=== PATIENT | male | born 1960 | race American Indian/Alaskan Native ===

== ENCOUNTER 2020-02-21 21:21 | Emergency (ER) | payer MEDICAID ==
[~2020-02-21 21:21] MED LIST: CALCIUM CHLORIDE 1,000 MG/10 ML SYRINGE IV ONE; EPINEPHrine 1:10,000 1 MG/10 ML SYRINGE ONE; SODIUM BICARB 8.4% 50 MEQ/50 ML SYRINGE IV ONE
--- NOTE | 2020-02-21 21:43 | Emergency Department Report ---
HPI - General Chief Complaint: Cardiac Arrest/CPR Time Seen by Provider: 02/21/20 21:39 - HPI HPI: 59-year-old -[place] male presents to the emergency department via EMS from home in cardiac arrest. Apparently the patient's last known well time was about 45 minutes prior to EMS arrival. EMS found the patient unresponsive and pulseless in the bathroom surrounded by vomit. Apparently the patient went in between PEA, asystole, and did have 1 episode of V. tach. He received a defibrillation for the V. tach and went back into asystole. The patient received 4 rounds of epinephrine and 300 mg of amiodarone with EMS. The patient was intubated and was receiving bag valve ventilation and he had a intraosseous line placed. EMS confirms that the patient has some type of past medical history but they were unable to say what conditions or comorbidities this patient has. He has never been to this facility previously. ED Review of Systems ROS: Stated complaint: CARDIAC ARREST Other details as noted in HPI Comment: Unobtainable due to pts medical conditions Physical Exam - Physical Exam Physical Exam: GENERAL: Patient is ill-appearing and unresponsive. HENT: Normocephalic. Atraumatic. EYES: Pupils are fixed and dilated. NECK: Supple. Trachea appears midline. CHEST/LUNGS: There are no spontaneous respirations. HEART/CARDIOVASCULAR: There are no spontaneous heart sounds. ABDOMEN: Abdomen is soft but looks slightly distended. SKIN: Skin is cool but dry. NEURO: Unresponsive. Does not withdraw to painful stimuli. Does not follow any commands. MUSCULOSKELETAL: There is no obvious deformity. No palpable femoral or radial pulses. ED Medical Decision Making - Medical Decision Making This patient presented to the emergency department in cardiac arrest. He was immediately brought to room 20 while EMS continued bag valve ventilation through the ET tube and chest compressions. He was placed on our monitor and switched over to the gurney while chest compressions continued. Patient was immediately given epinephrine and sodium bicarbonate. The patient was in PEA during the first pulse and rhythm check. He received epinephrine and calcium for the second round and once again was in PEA. Patient received a third epinephrine here and was in PEA and then asystole. At this point the patient had received 7 rounds of epinephrine and was potentially unresponsive and pulseless for more than an hour. I took a bedside ultrasound and there was no cardiac activity. Time of was called at 2131. Critical Care Time: Yes Critical care time in (mins) excluding proc time.: 31 Critical care attestation.: If time is entered above; I have spent that time in minutes in the direct care of this critically ill patient, excluding procedure time. Critical care time spent on this patient in doing preparation for arrival of this cardiac arrest, initial evaluation, supervision of ACLS protocol, discussion with the patient's siblings. Critical Care Time: 31 minutes ED Disposition Clinical Impression: Cardiac arrest Respiratory failure Qualifiers: Chronicity: unspecified Respiratory failure complication: unspecified whether with hypoxia or hypercapnia Qualified Code(s): J96.90 - Respiratory failure, unspecified, unspecified whether with hypoxia or hypercapnia Disposition: DC-20 Is pt being admited?: No Time of Disposition: 22:26
== END 2020-02-21 22:00 ==
LOC: ED 21:21
DX: I46.9 Cardiac arrest, cause unspecified (principal); J96.90 Respiratory failure, unspecified, unspecified whether with hypoxia or hypercapnia
CPT/HCPCS: 92950; 99285; J0171